=== PATIENT | male | born 1955 | race Caucasian/White ===

== ENCOUNTER 2018-02-21 13:16 | Emergency (ER) | payer MEDICAID ==
[~2018-02-21] VITALS: Ht 180.3 cm; Wt 81.8 kg
[2018-02-21 13:57] VITALS: BP 161/98
[2018-02-21] MEDS ORDERED: ondansetron/PF 4mg/2ml inj IV ONE (14:05)
[2018-02-21] MEDS ORDERED: normal saline 1000ML IV soln IVB ONE (14:05)
[2018-02-21] MEDS ORDERED: diazepam 5mg tablet PO ONE (14:05)
[2018-02-21] MEDS ORDERED: ketorolac trometh. 30mg/ml inj. IV ONE (14:05)
[2018-02-21] MEDS: morphine 4 MG/ML inj SYRINge IV PRN ×3 (14:44→16:21)
== END 2018-02-21 16:36 | disposition short-term general hospital (02) ==
LOC: ER 13:17
DX: M51.16 Intervertebral disc disorders with radiculopathy, lumbar region (principal); F17.200 Nicotine dependence, unspecified, uncomplicated; W11.XXXA Fall on and from ladder, initial encounter; Y93.89 Activity, other specified; Y92.89 Other specified places as the place of occurrence of the external cause; Y99.8 Other external cause status
CPT/HCPCS: 72148; 96374; 96375; 96376; 99291; J1885; J2270; J2405; J7030